=== PATIENT | female | born 1965 | race Caucasian/White ===

== ENCOUNTER 2020-05-11 11:37 | Observation (INO) | payer OTHER ==
[~2020-05-11] VITALS: Ht 170.2 cm; Wt 108.9 kg
[2020-05-11 11:39] VITALS: BP 182/96
[2020-05-11] MEDS ORDERED: LISINOPRIL-HCT1 EAC1 PO (11:43)
[2020-05-11] MEDS ORDERED: BUSPAR30 MG (11:43)
[2020-05-11] MEDS ORDERED: NORVASC 2.5 MG2.5 M1 (11:43)
[2020-05-11] MEDS ORDERED: VISTARIL 25 MG25 M1 PO (11:44)
[2020-05-11 12:55] LABS: ABSOLUTE BASOPHILS 0.1 thou/uL (0.0-0.2); ABSOLUTE EOSINOPHILS 0.2 thou/uL (0.0-0.7); ABSOLUTE MONOCYTES 0.8 thou/uL (0.0-1.2); ABSOLUTE NEUTROPHILS 5.1 thou/uL (1.6-8.1); BASOPHILS 0.9 %; HEMATOCRIT 41.8 % (37.0-47.0); HEMOGLOBIN 14.1 gm/dL (12.0-15.0); LYMPHOCYTES 24.7 %; MCH 28.8 pg (26.0-34.0); MCHC 33.8 g/dL (28.0-37.0); MCV 85.4 fL (80.0-100.0); MONOCYTES 10.1 %; MPV 9.2 fl. (7.2-11.1); NUCLEATED RBCS 0 /100WBC; PLATELET COUNT* 274 thou/uL (150-400); POLYS 62.3 %; RDW-CV 13.7 % (10.5-14.5); WBC 8.2 thou/uL (4.0-11.0)
[2020-05-11 12:58] LABS: CALCIUM 9.7 mg/dL (8.5-10.1); POTASSIUM 4.4 mmol/L (3.5-5.1)
[2020-05-11 14:24] VITALS: BP 196/79
[2020-05-11 15:30] VITALS: BP 160/90
[2020-05-11 19:50] VITALS: BP 126/65
[2020-05-12 03:50] VITALS: BP 123/83
[2020-05-12 04:34] VITALS: BP 123/83
[2020-05-12 07:10] VITALS: BP 123/83
[2020-05-12] MEDS ORDERED: COLACE100 MG PO (07:29)
[2020-05-12 11:00] VITALS: BP 105/74
--- NOTE | 2020-05-12 11:50 | EKG ---
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
[2020-05-12 20:00] VITALS: BP 119/63
[2020-05-12 23:54] VITALS: BP 119/65
[2020-05-13] VITALS (8 sets, daily range): BP systolic 118–143; BP diastolic 65–87
[2020-05-13] MEDS ORDERED: LORCET 5-325 M1 EACH PO (08:57)
[2020-05-13] MEDS ORDERED: ASPIR-TRIN325 MG PO (08:59)
--- NOTE | 2020-05-14 12:49 | OP ---
[address] [address] OPERATIVE REPORT Name: JANIE ZEE Room: [address] Constance Quintanilla#: [id number] Admission: 05/11/20 Attend Phys: Ez Be MD Discharge: 05/13/20 Date of : 63 Report #: [id number] THIS REPORT FOR: //name// cc: JOY - No family physician/PCP JOY - No family physician/PCP ~ CC: [facility] physician/PCP Ez Be DATE OF SERVICE: 05/12/2020 PREOPERATIVE DIAGNOSIS: Displaced closed left bimalleolar ankle fracture. POSTOPERATIVE DIAGNOSIS: Displaced closed left bimalleolar ankle fracture. SURGERY PERFORMED: Open reduction and internal fixation of the left ankle medial and lateral sides with a Evaristo locking plate and cannulated screws medially. SURGEON: Dr. Richter. FRONT DESK RECEPTIONIST: Dr. Klein. SECOND FRONT DESK RECEPTIONIST: Dr. Durán. ANESTHESIA: General anesthetic. The patient also had a block to the lower extremity. She did receive Ancef 2 grams IV piggyback preoperatively. No specimens, complications or drains. Estimated blood loss is 25 mL. Gross findings as follows. X-rays post-fall injury does demonstrate a displaced bimalleolar left ankle fracture. Intraoperative findings correlated with a comminuted distal fibular fracture and a large medial malleolus fracture fragment. The patient did have to have some small fragments removed from the lateral side with no soft tissue on them. The patient's post-reduction demonstrated an anatomic reduction in AP and lateral views. The patient had an ankle mortise that was stable upon doing the cotton test as well. SURGERY IN DETAIL: She was taken to the operating room and placed on the table. Again, the benefit of a general anesthetic. A well-padded tourniquet was placed high on the left thigh region. She underwent initially a Hibiclens scrub. Chlorhexidine prep and sterile drape of her left lower extremity surgery. Timeout was called and verified by everyone [place] [address] OPERATIVE REPORT Name: JANIE ZEE Room: [address] Constance Willard.#: [id number] Admission: 05/11/20 Attend Phys: Ez Be MD Discharge: 05/13/20 Date of : 63 Report #: [id number] lower leg. At this point in time, we Esmarched the extremity and inflated the tourniquet to 300 mmHg. I did start on the lateral fibular side region with a longitudinal skin incision from the tip of the fibula extending proximally above the fracture site with a 15 blade scalpel through skin and subcutaneous tissues with care. Careful retraction throughout the entire surgical dissection. The patient's dissection carried down to the fracture fragment site, it was copiously irrigated. She had invaginated tissue that was removed and then a talus that was seen on this side actually had no defects to it. The fracture was reduced and held by a 2-point clamp and then a [place] locking fibular plate was applied and fixated to the fibula in routine fashion. X-rays correlate with good reduction on this. Attention was drawn to the medial side. Again, a longitudinal incision made over the palpable fracture fragment through skin and subcutaneous tissues with a 15 blade scalpel. Blunt dissection carried down to that fracture. Again invaginated tissue was noted in this site, it was all removed, we copiously irrigated, the talus was seen on the medial side. No defects were noted. Two K-wires were placed across the medial fracture fragment. AP and lateral x-rays demonstrate good anatomic reduction, appropriately reamed them, and then two cannulated screws were placed without difficulty. Post-reduction x-rays demonstrated anatomic reduction in AP and lateral views with a cotton test under an external rotation test showed normal ankle mortise and syndesmosis area. I copiously irrigated prior to closure. The deep fascial layers each site was closed with 0 Vicryl in [id number] fashion, the subcutaneous with 2-0 Monocryl with a running 3-0 nylon to the skin. Xeroform, 4 x 4's, Kerlix, soft roll, well-padded posterior splint dressing was applied, transferred off the table and taken to recovery in stable condition. I attest I was present for all critical aspects of surgery and needle, instrument, sponge counts correct.. <ELECTRONICALLY SIGNED> By: Jasvir Richter DO 05/14/20 1249 0908 [id number] Richter DO /quique
== END 2020-05-13 16:30 | disposition home or self-care (01) ==
LOC: M.ERS 11:37 → M.TBA-ER 12:37 → M.ORTHSURG 14:31
PROVIDERS: Emergency Medicine Emergency Medical Services; ADMIT Internal Medicine; ATTEND Internal Medicine
DX: S82.842A Displaced bimalleolar fracture of left lower leg, initial encounter for closed fracture (principal); S93.02XA Subluxation of left ankle joint, initial encounter; E66.9 Obesity, unspecified; I10 Essential (primary) hypertension; F17.200 Nicotine dependence, unspecified, uncomplicated; W01.0XXA Fall on same level from slipping, tripping and stumbling without subsequent striking against object, initial encounter; Y93.89 Activity, other specified; Y92.89 Other specified places as the place of occurrence of the external cause; Z68.37 Body mass index [BMI] 37.0-37.9, adult; Z79.899 Other long term (current) drug therapy; Z20.828 Contact with and (suspected) exposure to other viral communicable diseases